=== PATIENT | male | born 1985 | race Caucasian/White ===

== ENCOUNTER 2017-04-03 21:06 | Emergency (ER) | payer OTHER ==
--- NOTE | 2017-04-03 21:09 | PDOC ---
History of Present Illness - General Chief Complaint: Injury Stated Complaint: RIGHT 5TH FINGERTIP INJURY Time Seen by Provider: 04/03/17 21:09 History Source: Patient Exam Limitations: No Limitations - History of Present Illness Initial Comments: 04/03/17 22:15 This is a 31-year-old male who comes in complaining of the a pressure sensation in his right fifth finger. Patient injured it approximately 11 days ago when he got it caught in a car door. Patient was concerned that the secondary infected. Patient denies any fevers or chills. Patient denies any increase in pain. Patient denies any purulence or discharge from the finger. PAST MEDICAL HISTORY: no significant history PAST SURGICAL HISTORY: no significant history FAMILY HISTORY: no pertinant history SOCIAL HISTORY: Pt lives with family and is employed. MEDICATIONS: reviewed ALLERGIES: As per nursing notes Review of Systems General: No fevers or chills, no weakness, no weight loss HEENT: No change in vision. No sore throat,. No ear pain CardioVascular: No chest pain or shortness of breath Respiratory:No cough, or wheezing. Gastrointestinal: no nausea, vomitting, diarrhea or constipation, No rectal bleeding Genitourinary: No dysuria, hematuria, or frequency Musculoskeletal: Right fifth finger injury Neurologic: No headache, vertigo, dizziness or loss of consciousness Psychiatric: nor depression Skin: No rashes or easy bruising Endocrine: no increased thirst or abnormal weight change Allergic: no skin or latex allergy All other systems reviewed and normal GENERAL: The patient is awake, alert, and fully oriented, in no acute distress. HEAD: Normal with no signs of trauma. EYES: Pupils equal, round and reactive to light, extraocular movements intact, sclera anicteric, conjunctiva clear. EXTREMITIES: There is a 100% subungual hematoma of the right fifth finger. There is some associated swelling and inflammation to the area. There is no purulence, there is no increased tenderness on palpation there is no increased redness of the finger or hand. NEUROLOGICAL: Normal speech, normal gait. PSYCH: Normal mood, normal affect. SKIN: Warm, Dry, normal turgor, no rashes or lesions noted. Procedure note trephination of the nail using electrocautery was done with no release of the blood from underneath the nail as it was all clotted. 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 Patient had trephination done of the nail here in the emergency room without any removal of blood from underneath the nail.. Finger did not appear to be infected at this time however I was unable to rule out a very early infection versus inflammation from the injury. I did send a prescription to patient's pharmacy and told him if finger got worse in the next 24-48 hours that he should get the prescription filled and start taking the antibiotic. Past History - Past Medical History Allergies/Adverse Reactions: Allergies Allergy/AdvReac Type Severity Reaction Status Date / Time Penicillins Allergy Unknown Verified 04/03/17 21:09 Home Medications: Ambulatory Orders Sulfamethoxazole/Trimethoprim [Bactrim DS -] 1 tab PO BID #14 tablet 04/03/17 *DC/Admit/Observation/Transfer Diagnosis at time of Disposition: Hematoma, subungual, finger, right Qualifiers: Encounter type: initial encounter Qualified Code(s): S60.10XA - Contusion of unspecified finger with damage to nail, initial encounter - Discharge Dispostion Disposition: HOME Condition at time of disposition: Good - Prescriptions Prescriptions: Sulfamethoxazole/Trimethoprim [Bactrim DS -] 1 tab PO BID #14 tablet - Referrals Referrals: Erica Templeton [Primary Care Provider] - - Patient Instructions Additional Instructions: Tylenol or Motrin as needed for pain. The fingernail will eventually come off. If you develop more pain or any pus from underneath the finger or increased swelling or redness get the prescription for Bactrim that is at your pharmacy and take as directed. Return to the emergency department immediately with ANY new, persistent or worsening symptoms. Continue any medications as previously prescribed by your physician. You should follow up with your primary doctor as soon as possible regarding today's emergency department visit. . Please make sure your doctor reviews the results of your emergency evaluation. Thank you for coming to the Emergency Department today for your care. It was a pleasure to see you today. Please note that your evaluation is INCOMPLETE until you follow-up with your doctor.
[2017-04-03 21:25] VITALS: BP 134/98; PULSE 80; BMI 31.5
== END 2017-04-03 22:15 | disposition home or self-care (01) ==
LOC: FER 21:06
DX: S60.051A Contusion of right little finger without damage to nail, initial encounter (principal); X58.XXXA Exposure to other specified factors, initial encounter; Y93.89 Activity, other specified; Y92.9 Unspecified place or not applicable; Y99.0 Civilian activity done for income or pay
CPT/HCPCS: 99281-25